=== PATIENT | female | born 1965 | race Caucasian/White ===

== ENCOUNTER → 2022-08-22 10:29 | Outpatient (BNVA) | payer BC, SELFPAY | PROVIDERS: Visit Provider Nurse Practitioner Family | DX: M75.51 Bursitis of right shoulder | CPT/HCPCS: 73030 ==

== ENCOUNTER → 2023-01-11 15:30 | Outpatient (BNVA) | payer BC, SELFPAY | PROVIDERS: Visit Provider Nurse Practitioner Women's Health | DX: Z12.4 Encounter for screening for malignant neoplasm of cervix (principal) | CPT/HCPCS: 87624 ==

== ENCOUNTER → 2023-01-31 11:32 | Outpatient (BNVA) | payer BC, SELFPAY | PROVIDERS: Visit Provider Nurse Practitioner Women's Health | DX: R10.32 Left lower quadrant pain (principal) | CPT/HCPCS: 76830 ==

== ENCOUNTER → 2023-07-20 16:40 | Outpatient (BNVA) | payer BC, SELFPAY | PROVIDERS: Referring Provider Nurse Practitioner Women's Health; Visit Provider Internal Medicine | DX: E28.2 Polycystic ovarian syndrome (principal); E03.9 Hypothyroidism, unspecified; Z12.31 Encounter for screening mammogram for malignant neoplasm of breast; Z13.1 Encounter for screening for diabetes mellitus; Z13.220 Encounter for screening for lipoid disorders | CPT/HCPCS: 36415; 80053; 80061; 82044; 82306; 82607; 82746; 83036; 83540; 84439; 84443; 84630 ==

== ENCOUNTER → 2024-06-10 13:19 | Outpatient (BNVA) | payer BC, SELFPAY | PROVIDERS: PCP Family Medicine; Visit Provider Orthopaedic Surgery | DX: M54.50 Low back pain, unspecified (principal); M48.062 Spinal stenosis, lumbar region with neurogenic claudication | CPT/HCPCS: 72110 ==

== ENCOUNTER 2024-06-18 06:54 | Day surgery (SDC) | payer BC, SELFPAY ==
[2024-06-18 07:12] VITALS: BP 132/75; PULSE 70; RESP 18; TEMP 36.2; O2SAT 97; BMI 39.6
[2024-06-18] MEDS: sodium chloride 0.9% 500 ML 15 ML IV (07:22)
--- NOTE | 2024-06-18 07:23 | ANES.PREANE2 ---
Pre-Anesthetic Assessment Height/Weight: Height 1.55 m Weight 95.254 kg Temp Pulse Resp BP Pulse Ox O2 Del Method 97.1 F L 70 18 132/75 97 Room Air 06/18/24 07:12 06/18/24 07:12 06/18/24 07:12 06/18/24 07:12 06/18/24 07:12 06/18/24 07:12 Operation Date: 06/18/24 08:00 Proposed Procedures p Colonoscopy 38366, G0121, Z12.11(Not Applicable) - Nicolas Harry DO Familial anesthetic complications: None Was Beta Yaya taken within 24 hours: N/A Was Clonidine taken within 24 hours: N/A Last intake: Intake Last Liquid Date 06/17/24 Last Liquid Time 23:59 Last Solid Date 06/16/24 Last Solid Time 20:00 Social No alcohol and No tobacco Exam alert, oriented x 3, clear to auscultation bilaterally and regular rate & rhythm Airway Submandibular: within normal limits (Small mouth opening) Cervical ROM: within normal limits Mallampati: Class III Dentition: full History/ROS No significant history except as noted and No significant complaints Pulmonary None reported CV/HEM None reported None reported Hepatic None reported GI Gastric bypass 2006 Metabolic Morbid Obesity and Thyroid Disease (Hasn't taken any meds in a year) Musc/skel Lower Back Pain and Osteoarthritis/DJD Neuropsych None reported Anesthetic Plan ASA status: 3 Anesthesia: Anesthesia Evaluation, General and MAC Risk of > 500 ml blood loss (7ml/kg in children): No Medications/Allergies Home Medications ?Medication ?Instructions ?Recorded ?Confirmed ?Last Taken ?Type sertraline 50 mg tablet 50 mg PO DAILY #90 tabs 11/26/23 06/16/24 06/16/24 Rx gabapentin 300 mg capsule 300 mg PO DAILY 06/02/24 06/16/24 06/16/24 History methocarbamol 500 mg tablet 500 mg PO DAILY 06/02/24 06/16/24 06/16/24 History Allergies Allergy/AdvReac Type Severity Reaction Status Date / Time amoxicillin Allergy hives Verified 06/10/24 13:46 [facility] Anesthesia Medical History PCOS (polycystic ovarian syndrome) Hypothyroid Surgical History History of dilation and curettage H/O gastric bypass Family History Denies family history of Cervical cancer Colon cancer Ovarian cancer Diabetes Breast cancer Hypertension Uterine cancer Stroke Social History Smoking and tobacco/nicotine status: never used tobacco/nicotine Data Anesthesia Cardiac Studies: No Data to Display
--- NOTE | 2024-06-18 07:46 | W.PM.OPSUD ---
Surgery/Procedure H&P Update DATE OF PROCEDURE: June 18, 2024 DATE H&P PERFORMED: 06/02/24 H&P UPDATE INFORMATION: I have reviewed H&P completed within last 30 days, I have examined patient prior to procedure and No changes to prior documentation PLANNED PROCEDURE: Operation Date: 06/18/24 08:00 Proposed Procedures p Colonoscopy 53462, G0121, Z12.11(Not Applicable) - Nicolas Harry, DO
[2024-06-18 08:21] VITALS: BP 122/75; PULSE 69; RESP 18; TEMP 36.3; O2SAT 93
[2024-06-18 08:31] VITALS: BP 119/74; PULSE 67; RESP 18; TEMP 36.2; O2SAT 96
--- NOTE | 2024-06-18 08:41 | ANE.PACU2 ---
Inpatient post-anesthesia follow up: Airway intact: Yes Vital signs: Temperature 97.2 F Pulse Rate 67 Respiratory Rate 18 Blood Pressure 119/74 Pulse Oximetry 96 Oxygen Delivery Me thod Room Air Oxygen Flow Rate Fraction of Inspir ed Oxygen Hydration adequate: Yes Nausea and vomiting: No Pain level: 1 Mental status: Baseline
== END 2024-06-18 08:42 | disposition home or self-care (01) ==
PROVIDERS: PCP Family Medicine; Visit Provider Surgery
PROC: 0DJD8ZZ Inspection of Lower Intestinal Tract, Via Natural or Artificial Opening Endoscopic (ICD-10-PCS; CPT 45378; principal; 2024-06-18 08:00)
DX: Z12.11 Encounter for screening for malignant neoplasm of colon (principal); D12.3 Benign neoplasm of transverse colon; E66.01 Morbid (severe) obesity due to excess calories; Z68.39 Body mass index [BMI] 39.0-39.9, adult; Z79.899 Other long term (current) drug therapy; Z88.0 Allergy status to penicillin; Z98.84 Bariatric surgery status
CPT/HCPCS: 45385; 88305; J2704; J7040

== ENCOUNTER → 2024-07-10 09:06 | Outpatient (BNVA) | payer BC, SELFPAY | PROVIDERS: PCP Family Medicine; Visit Provider Orthopaedic Surgery | DX: M48.062 Spinal stenosis, lumbar region with neurogenic claudication (principal) | CPT/HCPCS: 36415; 80053; 81003; 85025 ==

== ENCOUNTER → 2024-07-30 09:51 | Outpatient (BNVA) | payer BC, SELFPAY | PROVIDERS: PCP Family Medicine; Visit Provider Family Medicine | DX: Z01.818 Encounter for other preprocedural examination (principal) | CPT/HCPCS: 93005 ==

== ENCOUNTER 2024-08-22 06:01 | Day surgery (SDC) | payer BC, SELFPAY ==
[2024-08-22] VITALS (14 sets, daily range): BP systolic 101–227; BP diastolic 67–117; PULSE 61–95; RESP 10–25; TEMP 36.3–36.6; O2SAT 94–100; BMI 40.6
--- NOTE | 2024-08-22 06:34 | W.PM.OPSFHP ---
Same Day Surgery H&P Indication for Procedure/HPI DATE OF PROCEDURE: August 22, 2024 CHIEF COMPLAINT/INDICATIONFOR SURGICAL PROCEDURE: Back and left leg pain PREOP DIAGNOSIS: Lumbar radiculopathy with L4-5 disc herniation PLANNED PROCEDURE: Operation Date: 08/22/24 07:00 Proposed Procedures p Lumbar Laminotomy(Not Applicable) - Devan Wellington DO Medications/Allergies* Allergies/Adverse Reactions Allergy/AdvReac Type Severity Reaction Status Date / Time amoxicillin Allergy hives Verified 08/13/24 10:29 Pertinent History/Comorbid Conditions* Medical History (Updated 07/07/24 @ 09:47 by Nicolas Harry DO) PCOS (polycystic ovarian syndrome) Hypothyroid Surgical History (Updated 06/02/24 @ 14:12 by Nicolas Harry DO) History of dilation and curettage H/O gastric bypass Family History (Updated 01/11/23 @ 12:03 by Shae Huynh CMA) Denies family history of Cervical cancer Colon cancer Ovarian cancer Diabetes Breast cancer Hypertension Uterine cancer Stroke Social History Smoking and tobacco/nicotine status: never used tobacco/nicotine Pertinent Exam Findings alert, oriented x 3 and procedure specific exam findings Recommendations Risks and benefits of procedure reviewed Surgery/Procedure today Coding Level of Care Code Acute Code for Chg Fwd
[2024-08-22] MEDS: sodium chloride 0.9% 1,000 ML 30 ML IV (06:42)
--- NOTE | 2024-08-22 06:46 | P.ANESASSM_ITS ---
Pre-Anesthetic Assessment Height/Weight: Height 1.55 m Weight 97.522 kg Temp Pulse Resp BP Pulse Ox O2 Del Method 97.9 F 68 18 115/92 95 Room Air 08/22/24 06:24 08/22/24 06:24 08/22/24 06:24 08/22/24 06:24 08/22/24 06:24 08/22/24 06:36 Preop Diagnosis: Lumbar radiculopathy with L4-5 disc herniation Operation Date: 08/22/24 07:00 Proposed Procedures p Lumbar Laminotomy(Not Applicable) - Devan Wellington, DO Familial anesthetic complications: none Was Beta Yaya taken within 24 hours: N/A Was Clonidine taken within 24 hours: N/A Last intake: Intake Last Liquid Date 08/21/24 Last Liquid Time 20:00 Last Solid Date 08/21/24 Last Solid Time 20:00 Social No alcohol and No tobacco Airway Submandibular: within normal limits Cervical ROM: within normal limits Mallampati: Class II Dentition: full Metabolic Morbid Obesity and Thyroid [place] [facility] [place] Lower Back Pain Neuropsych Anxiety Anesthetic Plan ASA status: 2 Anesthesia: General Medications/Allergies Home Medications ?Medication ?Instructions ?Recorded ?Confirmed ?Last Taken ?Type sertraline 50 mg tablet 50 mg PO DAILY #90 tabs 11/0508/21/24 08/21/24 Rx fexofenadine 60 mg-pseudoephedrine 1 tab PO Q12H PRN s inus symptoms 08/13/24 08/21/24 08/21/24 Rx ER 120 mg tablet,ext.release,12 hr 14 days #30 tabs (Sarahy-D 12 Hour) Allergies Allergy/AdvReac Type Severity Reaction Status Date / Time amoxicillin Allergy hives Verified 08/13/24 10:29 Current Medications Generic Name Dose Route Start Last Admin Trade Name Freq PRN Reason Stop Dose Admin Sodium Chloride 1,000 mls @ 30 mls/hr 08/22/24 06:15 08/22/24 06:42 Sodium Chloride 0.9% IV 08/23/24 06:14 30 mls/hr .Q24H GEOVANY Administration PFSH Anesthesia Medical History PCOS (polycystic ovarian syndrome) Hypothyroid Surgical History History of dilation and curettage H/O gastric bypass Family History Denies family history of Cervical cancer Colon cancer Ovarian cancer Diabetes Breast cancer Hypertension Uterine cancer Stroke Social History Smoking and tobacco/nicotine status: never used tobacco/nicotine Data Anesthesia Cardiac Studies: No Data to Display
[2024-08-22] MEDS: scopolamine 1 mg PATCH 1 PATCH TRANSDERMA (06:48)
[2024-08-22] MEDS: clindamycin 600 MG/50 ML PREMIX 100 MG IV (07:00)
[2024-08-22] MEDS: lidocaine-epi 1% 20 mL INJ 10 ML INJECTION (07:25)
--- NOTE | 2024-08-22 08:21 | PM.OP ---
Operative Report Date of procedure: August 22, 2024 Pre-op diagnosis: L4-5 disc herniation with radiculopathy on the left Post-op diagnosis: same Procedure done: L4-5 laminectomy with partial facetectomy and discectomy Surgeon: Devan Wellington DO Estimated blood loss (mL): 20 Procedure: L4-5 laminectomy with partial facetectomy and discectomy Patient is brought to the operative suite. After undergoing anesthesia they are placed in the prone position. All areas of impingement are well padded. Patient is then prepped and draped in the normal sterile fashion. A skin incision is made over the L4/5 level. This is confirmed under c-arm guidance. A series of dilators are passed and the tubular retractor is docked on the L4 lamina. A bovie is used to clear the soft tissue off the lamina and the L 4/5 facet joint. A high speed angel is then used to perform the laminectomy and take down the medial aspect of the L 4/5 facet joint. A kerrison rongeure was then used to take down the remaining lamina and smooth the edge of the laminectomy up to the point where the ligamentum flavum attaches. Attention was then brought to the medial aspect of the facet joint. The remaining medial aspect of the superior and inferior aspect of the facet joint were taken down with the kerrison from the pedicle of L4 to L 5. The facet joint had significant hypertrophy. Attention was then brought to the Ligamentum Flavum. The ligament was taken down from the lamina of L4 to L5 and out medially to the remaining facet joint. The ligament was thick. The dura was then exposed. The dura was in good repair. The L5 nerve root was retracted medially this was identified with a knife the annulus was opened the disc base was irrigated out and multiple fragments of disc removed. The L4 nerve was then traced with a curette out the L4/5 foramen and found to be adequately decompressed. The L5 nerve was traced with a curette around the L5 pedicle. The lateral recess was opened with a kerrison helping to further decompress the L5 nerve. Wound is then irrigated copiously with saline and surgiflo is used to stop any bleeding. The tubular retractor is removed and the wound is closed with vicryl and monocryl suture. Glue is then used to protect the wound. A sterile dressing is then placed. Patient was then placed in the supine position and transferred to the PACU in stable condition.
[2024-08-22] MEDS: fentaNYL 50 mcg/mL INJ 2mL IVP (08:31)
[2024-08-22] MEDS: methadone 10 mg Tablet PO (09:19)
--- NOTE | 2024-08-22 09:38 | ANE.PACU2 ---
Inpatient post-anesthesia follow up: Airway intact: Yes Vital signs: Temperature 97.3 F Pulse Rate 70 Respiratory Rate 16 Blood Pressure 107/70 Pulse Oximetry 94 Oxygen Delivery Me thod Room Air Oxygen Flow Rate 3 Fraction of Inspir ed Oxygen Hydration adequate: Yes Nausea and vomiting: No Pain level: 3 Mental status: Baseline
[2024-08-22] MEDS: HYDROcodone-acetaminophen 5-325 mg Tablet 1 TAB PO (09:52)
--- NOTE | 2024-08-22 14:00 | XR_ITS ---
WS: [id number] Lumbar spine, C-arm fluoroscopy views, 08/22/2024 Clinical Data: or pic, decompression Comparison: Lumbar spine, 06/10/2024 Findings: Dr. Wellington performed a lumbar decompression. XR/XR lumbar spine 1V [id number] Impression: Lumbar decompression.
== END 2024-08-22 10:26 | disposition home or self-care (01) ==
PROVIDERS: PCP Family Medicine; Visit Provider Orthopaedic Surgery
PROC: (CPT 63030; principal; 2024-08-22 07:00)
DX: M51.16 Intervertebral disc disorders with radiculopathy, lumbar region (principal); E03.9 Hypothyroidism, unspecified; E66.01 Morbid (severe) obesity due to excess calories; E28.2 Polycystic ovarian syndrome; F41.9 Anxiety disorder, unspecified; Z88.0 Allergy status to penicillin; Z98.84 Bariatric surgery status; Z68.41 Body mass index [BMI] 40.0-44.9, adult; Z79.899 Other long term (current) drug therapy
CPT/HCPCS: 63030; 72020; 76000; J1100; J2250; J2371; J2405; J2704; J3010; J3490; J7030; J9999

== ENCOUNTER → 2024-10-09 10:59 | Outpatient (BNVA) | payer BC, SELFPAY | PROVIDERS: PCP Family Medicine; Visit Provider Family Medicine | DX: Z13.6 Encounter for screening for cardiovascular disorders (principal); E11.9 Type 2 diabetes mellitus without complications; E55.9 Vitamin D deficiency, unspecified; E53.8 Deficiency of other specified B group vitamins; E03.9 Hypothyroidism, unspecified | CPT/HCPCS: 80053; 80061; 82306; 82607; 83036; 84439; 84443; 85025 ==

== ENCOUNTER 2024-12-08 10:31 | Outpatient (RCR) | payer BC, SELFPAY | END 2025-01-04 23:59 | disposition home or self-care (01) | LOC: SPT 10:31 | PROVIDERS: PCP Family Medicine; Visit Provider Orthopaedic Surgery | DX: M54.50 Low back pain, unspecified (principal) | CPT/HCPCS: 97110; 97161 ==

== ENCOUNTER 2024-12-29 12:07 | Outpatient (CLI) | payer BC, SELFPAY ==
--- NOTE | 2024-12-29 12:15 | XR_ITS ---
WS: [id number] Exam: XR ribs RT mn 3V w CXR1V [id number] Date/Time of Exam: 12/29/2024 12:15 PM Reason For Exam: Fall, right rib pain No RIGHT rib fracture or pneumothorax noted. There are nondisplaced fractures of the posterior aspect of the RIGHT 12th rib, the lateral aspect of the RIGHT seventh rib and possibly the lateral aspect of the RIGHT sixth rib. No pneumothorax is seen. No significant pleural or pulmonary reactive changes. The lungs are bilaterally clear. Normal heart size. No pleural effusion. Old LEFT clavicle fracture with hardware. XR/XR ribs RT mn 3V w CXR1V [id number] IMPRESSION: 1. Nondisplaced fractures of the lateral RIGHT seventh rib and the posterior RI GHT 12th rib. Possible nondisplaced fracture lateral RIGHT sixth rib. No pneumo thorax. 2. No acute cardiopulmonary finding identified otherwise.
== END 2024-12-29 12:08 | disposition home or self-care (01) ==
LOC: RAD 12:10
PROVIDERS: PCP Family Medicine; Visit Provider Family Medicine
DX: R07.81 Pleurodynia (principal); S22.41XA Multiple fractures of ribs, right side, initial encounter for closed fracture; X58.XXXA Exposure to other specified factors, initial encounter; R93.7 Abnormal findings on diagnostic imaging of other parts of musculoskeletal system; Z87.81 Personal history of (healed) traumatic fracture
CPT/HCPCS: 71101

== ENCOUNTER 2025-02-26 07:37 | Outpatient (RCR) | payer BC, SELFPAY | END 2025-03-06 23:59 | disposition home or self-care (01) | LOC: SPT 07:37 | PROVIDERS: PCP Family Medicine; Visit Provider Orthopaedic Surgery | DX: M48.062 Spinal stenosis, lumbar region with neurogenic claudication (principal) | CPT/HCPCS: 97161 ==

== ENCOUNTER 2025-03-07 05:00 | Outpatient (RCR) | payer BC, SELFPAY | END 2025-04-05 23:59 | disposition home or self-care (01) | LOC: SPT 05:00 | PROVIDERS: PCP Family Medicine; Visit Provider Orthopaedic Surgery | DX: M48.062 Spinal stenosis, lumbar region with neurogenic claudication (principal) | CPT/HCPCS: 97110 ==